=== PATIENT | female | born 1955 | race Caucasian/White ===

== ENCOUNTER 2019-12-15 15:05 | Emergency (ER) | payer OTHER, SELFPAY ==
[2019-12-15 15:10] VITALS: BP 124/86; PULSE 94; RESP 16; TEMP 36.2; O2SAT 97; BMI 31.6
--- NOTE | 2019-12-15 15:16 | DI.RAD.S_ITS ---
PROCEDURE: XR HUMERUS LT 2V INDICATIONS: fall TECHNIQUE: 2 views of the humerus were acquired. COMPARISON: None. FINDINGS: Bones: There is a mildly displaced, mildly impacted comminuted fracture is seen of the left humeral neck. No definite intra-articular involvement is seen. No dislocation seen. The visualized ribs are unremarkable. No suspicious lytic or blastic lesions are seen. Soft tissues: No suspicious soft tissue calcifications. Presumed pacer leads are seen. The visualized lung demonstrates an unremarkable appearance. IMPRESSION: Mildly displaced, impacted fracture of the left humeral neck. Dictated by: Chuck Casey M.D. on 12/15/2019 at 14:35 Approved by: Chuck Casey M.D. on 12/15/2019 at 14:36
--- NOTE | 2019-12-15 15:55 | ED.UPPEXIN ---
HPI - Extremity Injury (Upper) General Chief Complaint: Extremity Injury, Upper Stated Complaint: left shoulder/arm injury, thinks broken Time Seen by Provider: 12/15/19 15:11 History of Present Illness HPI narrative: CC: Left shoulder pain I think broke my arm. HPI: The patient is a 64-year-old female that was walking out start side and tripped and fell against the lower step of the porch landing directly on her left shoulder. She developed immediate pain and discomfort. This occurred at approximately 12:00 p.m.. The patient did not strike her head injure her back or injure her neck. She has had no chest pain and no chest injury. She has had no shortness of breath or difficulty in breathing at this time. She was not incontinent of urine or stool. She had no nausea or vomiting. The pain is 7 to 8/10 in intensity. She has no allergies to medications. She states that she has a pacemaker in place and has a history of a cardiomyopathy with congestive heart failure. She has had a heart attack in the past. She denies any asthma hypertension or diabetes mellitus. She regrets occasionally drinks alcohol does not use any drugs. Related Data Previous Rx's Medication Instructions Recorded ondansetron HCl [Zofran] 4 mg PO Q6H PRN #10 tab 12/15/19 oxycodone-acetaminophen [Percocet] 1 tab PO Q4-6H PRN #12 tab 12/15/19 Allergies Allergy/AdvReac Type Severity Reaction Status Date / Time No Known Drug Allergies Allergy Verified 12/15/19 16:02 Review of Systems Review of Systems Narrative: The patient's review of systems were all negative except for those mentioned in the history of present illness. Exam Narrative Exam Narrative: PHYSICAL EXAM: CONSTITUTIONAL: Awake, Alert, Oriented, Coherent, Cooperative in no acute distress as long as she holds her left shoulder and arm splinted against her chest with her elbow flexed. HEAD: AT/NC EENT: PERRL, FROM of eyes, no discharge, no nystagmus MOUTH: The patient is wearing a COVID-19 mask. NECK: Supple, no obvious JVD, Trachea is midline without stridor, no palpable LN. SPINE: Palpationof the cervical, Thoracic, Lumbar or Sacral spine reveals no gross deformity or tenderness. No CVA tenderness. THORAX: No deformity, retractions, chest wall tenderness. LUNGS: Clear, symmetrical breath sounds without respiratory distress. HEART: Normal heart tones, regular rhythm and rate without murmur. ABDOMEN: Soft, non-tender, normal bowel sounds without guarding, rebound, rigidity or palpable mass. EXTREMITIES: The patient is tender to palpation along the head of the humerus. There was no tenderness to palpation over the clavicle a chromium or scapula. The patient is able to flex and extend her left elbow. The patient is able to flex extend and abduct and adduct her fingers. She has good capillary refill good sensation in her fingers. SKIN: No rash, bruising, or purpura. NEURO: Awake, alert, oriented, conversive, cranial nerves II-XII are symmetrical , moves all 4 extremities and is ambulatory. Initial Vital Signs Initial Vital Signs: Vital Signs Temperature 97.1 F L 12/15/19 15:10 Pulse Rate 94 H 12/15/19 15:10 Respiratory Rate 16 12/15/19 15:10 Blood Pressure 124/86 12/15/19 15:10 Pulse Oximetry 97 12/15/19 15:10 Course Course Course Narrative: 1555: Call was placed to Dr. Grider to refer the fracture to him. The patient has an impacted fracture of he neck of the humerus with minimal mild displacement. The patient has been placed in a shoulder immobilizer in administered morphine IM for the pain and discomfort. She states that her pain is 6 to 7/10 in intensity. Orders Ordered: Discontinued Medications Morphine Sulfate (Morphine) 4 mg IM NOW ONE Stop: 12/15/19 15:52 Last Admin: 12/15/19 16:06 Dose: 4 mg Documented by: TIMMY Ondansetron HCl (Zofran Odt) 4 mg SL NOW ONE Stop: 12/15/19 15:52 Last Admin: 12/15/19 16:06 Dose: 4 mg Documented by: TIMMY Vital Signs Vital signs: Vital Signs - 8 hr 12/15/19 15:10 Temperature 97.1 F L Pulse Rate 94 H Respiratory Rate 16 Blood Pressure 124/86 Pulse Oximetry 97 Discharge Plan Departure Patient Disposition: Home Clinical Impression: Fracture of humerus Qualifiers: Encounter type: initial encounter Humerus Location: surgical neck Fracture type: closed Fracture morphology: 2-part Fracture alignment: displaced Laterality: left Qualified Code(s): S42.222A - 2-part displaced fracture of surgical neck of left humerus, initial encounter for closed fracture Discharge Date/Time: 12/15/19 16:47 Instructions: DI for Fracture, DI for Shoulder Fracture Activity Restrictions/Additional Instructions: 1. Follow up with Dr. Grider call his office for an appointment 2. For the next 48 hours apply ice cold compresses for 20-30 minutes to the area of pain and discomfort every 2 hours as tolerated. 3. Take Percocet5/325 every 4- 6 hours for severe pain and discomfort. Prescriptions: New oxycodone-acetaminophen [Percocet] 5-325 mg tablet 1 tab PO Q4-6H PRN (Reason: pain) Qty: 12 RF: 0 ondansetron HCl [Zofran] 4 mg tablet 4 mg PO Q6H PRN (Reason: nausea and vomiting) Qty: 10 RF: 0 Referrals: Roque Grider MD [Physician] -
[2019-12-15] MEDS: ONDANSETRON 4 MG ODT SL (16:06)
[2019-12-15] MEDS: MORPHINE 4 MG/ML INJ IM (16:06)
[2019-12-15 16:44] VITALS: BP 120/70; PULSE 70; RESP 18; O2SAT 99
== END 2019-12-15 16:47 | disposition home or self-care (01) ==
PROVIDERS: Emergency Provider Emergency Medicine
DX: S42.222A 2-part displaced fracture of surgical neck of left humerus, initial encounter for closed fracture (principal); W19.XXXA Unspecified fall, initial encounter
CPT/HCPCS: 73060; 96372; 99283; 99284; J2270

== ENCOUNTER → 2021-03-05 08:56 | Outpatient (CLI) | payer OTHER, SELFPAY ==
[2021-03-05 10:43] LABS: COVID19 -Nasal RAPID Negative (Negative)
== END ==
PROVIDERS: Visit Provider Surgery
DX: Z20.822 Contact with and (suspected) exposure to COVID-19 (principal)
CPT/HCPCS: 87635; C9803

== ENCOUNTER 2021-03-08 07:56 | Day surgery (SDC) | payer OTHER, SELFPAY ==
[2021-03-08 08:32] VITALS: BP 113/77; PULSE 74; RESP 16; TEMP 36.6; O2SAT 97
[2021-03-08 08:34] VITALS: BMI 30.7
[2021-03-08] MEDS: LACTATED RINGERS 1,000 ML 200 ML IV (08:51)
--- NOTE | 2021-03-08 09:16 | PM.HP.1 ---
History of Present Illness History of Present Illness Date Patient Seen: 03/08/21 Time Patient Seen: 09:16 Chief complaint: SDC Narrative: The patient presents for colorectal sreening. They have never had any previous examination for such. No personal or family history of colon cancer. On further history denies any recent gastrointestinal symptoms. No nausea, vomiting, abdominal pain, loss of appetite, unexplained weight loss, change in bowel habits, diarrhea, constipation, melena, hematochezia, or bright red blood per rectum. Patient History Medical History Elevated cholesterol Fracture of anatomical neck of left humerus History of heart failure Hypertension Myocardial infarct Presence of combination internal cardiac defibrillator (ICD) and pacemaker Family & Social History Social History: household members spouse Tobacco & Substance use: Smoking Status Never smoker alcohol intake current alcohol intake frequency a few times a month Substance Use Type does not use Meds Home Medications and Allergies Home Medications Medication Instructions Recorded Confirmed Type atorvastatin 20 mg tablet 20 mg PO BEDTIME 03/08/21 03/08/21 History carvedilol 25 mg tablet 25 mg PO BID 03/08/21 03/08/21 History lisinopril 10 mg tablet 10 mg PO BEDTIME 03/08/21 03/08/21 History spironolactone 25 mg tablet 12.5 mg PO DAILY 03/08/21 03/08/21 History Allergies Allergy/AdvReac Type Severity Reaction Status Date / Time No Known Drug Allergies Allergy Verified 03/08/21 08:25 Review of Systems Review of Systems ROS: Yes All systems reviewed with the patient and are negative except as otherwise documented Exam Vital Signs (past 8 hours): - 03/08/21 08:32 Temperature 97.8 F Pulse Rate 74 Respiratory Rate 16 Blood Pressure 113/77 Pulse Oximetry 97 Oxygen Delivery Method Room Air Narrative Exam Narrative: GENERAL-well developed adult woman, no acute distress HEENT-no scleral icterus, hearing intact NECK-no JVD, trachea midline CVS- regular rate, no peripheral edema RESP-unlabored respiratory effort, no audible wheezing GI-soft, nontender nondistended MSK-no cyanosis or clubbing, extremities without deformity SKIN-warm, dry NEURO-alert and oriented, no focal deficits PYSCH-Appropriate mood and affect Assessment & Plan Assessment & Plan narrative: The patient requires colorectal screening and colonoscopy is recommended. Technical details were discussed. Risks, benefits, alternatives explained. Risks including but not limited to myocardial infarction, aspiration, bleeding, pain, missed lesion, incomplete examination, need for further radiographic studies, colonic perforation, and need for major abdominal surgery were discussed. All questions were answered to their satisfaction, and they are in agreement with this plan.
[2021-03-08] MEDS: fentaNYL 250 MCG/5 ML INJ IV (09:29)
[2021-03-08] MEDS: MIDAZOLAM 5 MG/5 ML VIAL IV (09:29)
--- NOTE | 2021-03-08 09:44 | PM.OP.ENDO ---
Operative Date/Time/Diagnoses Date of procedure: 03/08/21 Time of procedure: 09:44 Pre-op diagnosis: Screening colonoscopy Post-op diagnosis: same Procedure & Clinicians Study performed: Colonoscopy Same procedure as scheduled: Yes Indications: Screening colonoscopy Surgeon: Artie Garcia Procedure Notes Procedure in detail: Medications: Conscious sedation using 6mg IV midazolam and 150mcg IV of fentanyl The history and physical was performed/updated and the patient is ASA class is 3. The procedure was discussed in detail with the patient. Potential risks complications including infection, bleeding, missed diagnosis, perforation, need for surgery, and were explained. Their questions were answered and informed consent was obtained. Patient was brought to the procedure room and placed standard monitoring equipment. The patient's vital signs were monitored continuously throughout the entire procedure. Prior to starting time-out was performed. The patient was placed in the left lateral recumbent position. Procedural sedation was administered. Examination began with a thorough inspection of the perianal area there was no evidence of fissures, fistulae, external hemorrhoids or cutaneous malignancy. The colonoscopy scope was then placed into the anal canal and was advanced to the cecum, which was identified by the ileocecal valve, the appendiceal orifice and the confluence of the taenia. The scope was then slowly withdrawn examining colon thoroughly in all directions, irrigating it of any residual stool. FINDINGS 1. No masses are palpable 2. Grade 1 internal The patient tolerated the procedure well. They will be discharged once criteria are met. The prep was of good/excellent quality. The withdrawl time was 7 minutes. The sedation time was 21 minutes. Specimen(s): none sent Complications: none Impression: Normal healthy colon Post-procedure Recommendations: Colonscopy in 10 years Disposition: same day surgery
[2021-03-08 09:46] VITALS: BP 104/72; PULSE 74; RESP 13; TEMP 36.2; O2SAT 93
[2021-03-08 09:51] VITALS: BP 101/66; PULSE 69; RESP 22; O2SAT 93
[2021-03-08 10:01] VITALS: BP 102/65; PULSE 58; RESP 11; O2SAT 97
[2021-03-08 10:16] VITALS: BP 115/68; PULSE 71; RESP 12; TEMP 36.4; O2SAT 97
[2021-03-08 10:45] VITALS: BP 101/69; PULSE 60; RESP 16; TEMP 36.2; O2SAT 97
== END 2021-03-08 10:48 | disposition home or self-care (01) ==
PROVIDERS: Referring Provider Surgery; Visit Provider Surgery
PROC: 0DJD8ZZ Inspection of Lower Intestinal Tract, Via Natural or Artificial Opening Endoscopic (ICD-10-PCS; CPT 45378; principal; 2021-03-08 09:15)
DX: Z12.11 Encounter for screening for malignant neoplasm of colon (principal); E78.00 Pure hypercholesterolemia, unspecified; I10 Essential (primary) hypertension; Z95.0 Presence of cardiac pacemaker; I25.2 Old myocardial infarction; K64.0 First degree hemorrhoids
CPT/HCPCS: 45378; 99152; J2250; J3010

== ENCOUNTER 2021-06-13 09:33 | Emergency (ER) | payer OTHER, SELFPAY ==
[2021-06-13] VITALS (20 sets, daily range): BP systolic 101–132; BP diastolic 58–83; PULSE 62–102; RESP 18–26; TEMP 36.9; O2SAT 84–99; BMI 30.3
[2021-06-13 11:00] LABS: Add Manual Diff / Slide Review NO; Basophils Absolute Auto 0 /uL (0-100); Basophils Percent Auto 0.5 % (0-2); Eosinophils Absolute Auto 200 /uL (0-450); Eosinophils Percent Auto 2.2 % (2-4); Hematocrit 46.6 % (36-46); Hemoglobin 15.4 g/dL (12.0-16.0); Lymphocytes Absolute Auto 1500 /uL (1100-4500); Lymphocytes Percent Auto 18.6 % (25-40); Mean Corpuscular HGB Conc 33.1 % (30-36); Mean Corpuscular Hemoglobin 28.3 PG (26-34); Mean Corpuscular Volume 85.4 fL (80-100); Monocytes Absolute Auto 900 /uL (0-900); Monocytes Percent Auto 10.7 % (3-14); Neutrophils Absolute Auto 5400 /uL (1500-7000); Platelet Count 222 X10^3/uL (150-400); Red Blood Cell Count 5.46 X10^6/uL (4.0-5.2)
[2021-06-13 11:11] LABS: Alanine Aminotransferase 26 IU/L (<35); Albumin 4.9 g/dL (3.5-5.0); Albumin Globulin Ratio 1.6 (1.0-2.8); Alkaline Phosphatase 86 U/L (38-126); Aspartate Aminotransferase 32 IU/L (14-36); BUN Creatinine Ratio 17.1 (6-22); Bilirubin Total 0.8 mg/dL (0.2-1.3); Blood Urea Nitrogen 20 mg/dL (7-17); Calcium 9.8 mg/dL (8.4-10.2); Carbon Dioxide 25 mmol/L (22-32); Chloride 104 mmol/L (98-107); Estimated Glomerular Filt Rate 46.6 mL/min (>60); Globulin 3.1 g/dL (1.7-4.1); Glucose 107 mg/dL (80-110); HEMOLYSIS < 15 (0-50); Lipase 37 U/L (23-300); Potassium 3.2 mmol/L (3.4-5.1); Sodium 142 mmol/L (137-145)
--- NOTE | 2021-06-13 11:18 | ED.NAVMDI ---
HPI - Nausea/Vomiting/Diarrhea General Chief complaint: Nausea/Vomiting/Diarrhea Stated complaint: Diarrhea for over a week, dehydrated, weak Time Seen by Provider: 06/13/21 11:05 Source: patient Mode of arrival: Family Vehicle Limitations: no limitations History of Present Illness HPI Narrative: Patient is a 65-year-old female who presents with diarrhea ongoing for about 1 week. She says she has gone multiple times a day it is nonbloody she goes almost every time she goes to the restroom. She has no abdominal pain no vomiting. She does feel little weak and dehydrated. She tried taking Imodium earlier in the week but it upset her stomach. She says she and her ate dinner at a [employer] restaurant and had the same thing she got sick and he did not. Related Data Home Medications Medication Instructions Recorded Confirmed atorvastatin 20 mg tablet 20 mg PO BEDTIME 03/08/21 03/08/21 carvedilol 25 mg tablet 25 mg PO BID 03/08/21 03/08/21 lisinopril 10 mg tablet 10 mg PO BEDTIME 03/08/21 03/08/21 spironolactone 25 mg tablet 12.5 mg PO DAILY 03/08/21 03/08/21 Allergies Allergy/AdvReac Type Severity Reaction Status Date / Time No Known Drug Allergies Allergy Verified 03/08/21 08:25 Review of Systems Review of Systems Narrative: GENERAL: Denies chills, fatigue, malaise, fever, sweats, travel HEENT: Denies sinus pain, ear pain, sore throat, difficulty swallowing, neck pain RESPIRATORY: Denies dyspnea, cough, wheezing, hemoptysis, sputum. CARDIOVASCULAR: Denies chest pain, palpitations, orthopnea, edema GASTROINTESTINAL: see HPI : Denies dysuria, frequency, incontinence, hematuria, urinary retention, flank pain. MUSCULOSKELETAL: Denies weakness, joint pain, or bony pain SKIN: No rash, no erythema, no pruritus NEUROLOGIC: Denies weakness, dizziness, headache, numbness, change in speech, confusion PSYCHIATRIC: No concerning psychosocial issues. 12 point review of systems is negative except for those stated above and HPI Patient History Medical History Elevated cholesterol Fracture of anatomical neck of left humerus History of heart failure Hypertension Myocardial infarct Presence of combination internal cardiac defibrillator (ICD) and pacemaker Social History household members: spouse Smoking Status: Never smoker alcohol intake: current Smoking Status: Never smoker alcohol intake frequency: a few times a month Substance Use Type: does not use Exam Initial Vital Signs Initial Vital Signs: Vital Signs Temperature 98.4 F 06/13/21 10:33 Pulse Rate 86 06/13/21 10:33 Respiratory Rate 18 06/13/21 10:33 Blood Pressure 120/83 06/13/21 10:33 Pulse Oximetry 96 06/13/21 10:33 GENERAL: Alert 65-year-old male and in no acute distress. HEENT: Head atraumatic,EOMI, pupils reactive, face symmetric, moist mucous membranes CARDIOVASCULAR: Regular rate and rhythm without murmurs, rubs or gallops. RESPIRATORY: Breath sounds equal bilaterally, no wheezes rales or rhonchi. ABDOMEN: Soft, nontender. Normoactive bowel sounds all 4 quadrants. No guarding or rebound. EXTREMITIES: Normal range of motion, no clubbing or edema. Neurovascularly intact NEUROLOGICAL: Alert and oriented x4.Normal gait and speech. SKIN: Warm, dry, no laceration, no petechiae, no rashes or lesions. Course Orders Ordered: ED Orders 06/13/21 10:39 EKG-12 Lead Stat 06/13/21 10:49 Complete Blood Count AUTO DIFF Stat Comprehensive Metabolic Panel Stat Lipase Stat 06/13/21 13:04 GI Panel (Film Array) Stat Discontinued Medications Sodium Chloride (Normal Saline 0.9%) 1,000 mls @ 1,000 mls/hr IV BOLUS ONE Stop: 06/13/21 12:27 Last Infusion: 06/13/21 12:48 Dose: 0 mls/hr Documented by: Admin: 06/13/21 11:36 Dose: 1,000 mls/hr Documented by: LAURA Potassium Chloride (Potassium Chloride 20 Meq Tab) 40 meq PO NOW ONE Stop: 06/13/21 11:29 Last Admin: 06/13/21 11:36 Dose: 40 meq Documented by: LAURA Vital Signs Vital signs: Vital Signs - 8 hr 06/13/21 10:53 06/13/21 10:55 06/13/21 11:00 Pulse Rate 79 68 75 Respiratory Rate 22 18 Blood Pressure 106/78 101/72 Pulse Oximetry 84 L 97 97 06/13/21 11:30 06/13/21 11:31 06/13/21 12:00 Pulse Rate 76 80 74 Respiratory Rate 21 21 22 Blood Pressure 118/64 Pulse Oximetry 96 96 98 06/13/21 12:01 06/13/21 12:30 06/13/21 12:31 Pulse Rate 71 72 68 Respiratory Rate 20 24 18 Blood Pressure 116/58 L 126/60 Pulse Oximetry 98 98 99 06/13/21 13:00 06/13/21 13:31 06/13/21 14:00 Pulse Rate 62 102 H 71 Respiratory Rate 19 23 21 Blood Pressure 132/62 Pulse Oximetry 99 89 L 97 06/13/21 14:19 06/13/21 14:20 06/13/21 14:30 Pulse Rate 70 74 69 Respiratory Rate 21 Blood Pressure 111/70 111/70 Pulse Oximetry 98 98 98 06/13/21 14:55 06/13/21 15:00 06/13/21 15:30 Pulse Rate 74 65 69 Respiratory Rate 26 H 20 19 Blood Pressure 104/75 110/67 115/70 Pulse Oximetry 97 97 97 06/13/21 16:00 Pulse Rate 71 Respiratory Rate 21 Blood Pressure 116/77 Pulse Oximetry 98 MDM - Nausea/Vomiting/Diarrhea Lab Data Result diagrams: 06/13/21 10:49 06/13/21 10:49 Labs: Lab Results 06/13/21 06/13/21 06/13/21 Range/Units 10:49 10:49 13:04 WBC 8.0 (4.5-11.0) X10^3/uL RBC 5.46 H (4.0-5.2) X10^6/uL Hgb 15.4 (12.0-16.0) g/dL Hct 46.6 H (36-46) % MCV 85.4 (80-100) fL MCH 28.3 (26-34) PG MCHC 33.1 (30-36) % RDW 14.0 (11.6-14.8) % Plt Count 222 (150-400) X10^3/uL Neut % (Auto) 68.0 (50-75) % Lymph % (Auto) 18.6 L (25-40) % Jerome % (Auto) 10.7 (3-14) % Eos % (Auto) 2.2 (2-4) % Baso % (Auto) 0.5 (0-2) % Neut # (Auto) 5400 (9305-0259) /uL Lymph # (Auto) 1500 (4961-5664) /uL Jerome # (Auto) 900 (0-900) /uL Eos # (Auto) 200 (0-450) /uL Baso # (Auto) 0 (0-100) /uL Sodium 142 (137-145) mmol/L Potassium 3.2 L (3.4-5.1) mmol/L Chloride 104 (98-107) mmol/L Carbon Dioxide 25 (22-32) mmol/L BUN 20 H (7-17) mg/dL Creatinine 1.17 H (0.52-1.04) mg/dL Estimated GFR 46.6 L (>60) mL/min BUN/Creatinine Ratio 17.1 (6-22) Glucose 107 (80-110) mg/dL Calcium 9.8 (8.4-10.2) mg/dL Total Bilirubin 0.8 (0.2-1.3) mg/dL AST 32 (14-36) IU/L ALT 26 (<35) IU/L Alkaline Phosphatase 86 (38-126) U/L Total Protein 8.0 (6.3-8.2) g/dL Albumin 4.9 (3.5-5.0) g/dL Globulin 3.1 (1.7-4.1) g/dL Albumin/Globulin Ratio 1.6 (1.0-2.8) Lipase 37 (23-300) U/L Stl C. cayetanensis PCR Not detected (Not Detect) Stool Rotavirus (PCR) Not detected (Not Detect) Stool Adenovirus (PCR) Not detected (Not Detect) Stool Astrovirus (PCR) Not detected (Not Detect) Stool Cryptosporidium PCR Not detected (Not Detect) Stl E.coli Shiga Tox PCR Not detected (Not Detect) St Sh/Enteroin Ecoli PCR Not detected (Not Detect) Stool E coli O157 PCR Not detected (Not Detect) Stl Enterotoxigenic E PCR Not detected (Not Detect) Stool EPEC (PCR) Not detected (Not Detect) Stl E. histolytica PCR Not detected (Not Detect) Stool Giardia Lamblia PCR Not detected (Not Detect) Stool Sapovirus (PCR) Not detected (Not Detect) Stl P. shigelloides PCR Not detected (Not Detect) St Y.enterocolitica PCR Not detected (Not Detect) Stool Vibrio (PCR) Not detected (Not Detect) Stl Vibrio cholerae PCR Not detected (Not Detect) Stl Enteroaggr Ecoli PCR Not detected (Not Detect) Stl Norovirus GI/GII PCR Not detected (Not Detect) Campylobacter (PCR) Not detected (Not Detect) C. difficile Tox (PCR) Not detected (Not Detect) Salmonella (PCR) Not detected (Not Detect) MDM Narrative Medical decision making narrative: Now in the emergency department patient is having difficulty providing stool sample however she was finally able to provide 1. It is negative for everything. At this time recommend conservative treatment with hydration and Imodium. She is found to be slightly hypokalemic with potassium of 3.2 which is replaced in the emergency department. Discussed oral rehydration techniques. Discharge Plan Departure Patient Disposition: Home Clinical Impression: Gastroenteritis Instructions: DI for Viral Gastroenteritis -- Adult Activity Restrictions/Additional Instructions: 1) You have been diagnosed with gastroenteritis 2) What to do: Drink frequent but small amounts of fluids. Blood work and stool sample were negative. He did show some signs of dehydration electrolyte abnormality potassium slightly low. I recommend Gatorade or a Gatorade-like product, as it has small amounts of sugar and salts that improve fluid retention. 3) Take medications as directed 4) Follow up with your primary care provider in 2-3 days 5) Return to ER if you should have any new or worsening symptoms such as, unable to hold down fluids despite use of anti-nausea medications and the small volume oral rehydration strategy. Prescriptions: No Action carvedilol 25 mg tablet 25 mg PO BID RF: 0 atorvastatin 20 mg tablet 20 mg PO BEDTIME RF: 0 spironolactone 25 mg tablet 12.5 mg PO DAILY RF: 0 lisinopril 10 mg tablet 10 mg PO BEDTIME RF: 0 Referrals: Peng Malone MD [Physician] -
[2021-06-13] MEDS: POTASSIUM CHLORIDE 20 MEQ TAB 40 MEQ PO (11:36)
[2021-06-13] MEDS: SODIUM CHLORIDE 0.9% 1,000 ML 1000 ML IV (11:36)
[2021-06-13 15:59] LABS: Adenovirus F 40/41 Not Detected (Not Detect); Astrovirus Not Detected (Not Detect); Campylobacter Not Detected (Not Detect); Clostridium difficile toxin AB Not Detected (Not Detect); Cryptosporidium Not Detected (Not Detect); Cyclospora cayetanensis Not Detected (Not Detect); Entamoeba histolytica Not Detected (Not Detect); Enteroaggregative E.coli Not Detected (Not Detect); Enteropathogenic E.coli Not Detected (Not Detect); Enterotoxigenic E.coli It/st Not Detected (Not Detect); Giardia lamblia Not Detected (Not Detect); Norovirus GI/GII Not Detected (Not Detect); Plesiomonsa shigelloides Not Detected (Not Detect); Rotavirus A Not Detected (Not Detect); Salmonella Not Detected (Not Detect); Sapovirus Not Detected (Not Detect); Shiga-like toxin-prod E.coli Not Detected (Not Detect); Shigella/Enteroinvasive E.coli Not Detected (Not Detect); Vibrio Not Detected (Not Detect); Vibrio cholerae Not Detected (Not Detect); Yersinia enterocolitica Not Detected (Not Detect)
== END 2021-06-13 16:50 | disposition home or self-care (01) ==
PROVIDERS: Emergency Provider Emergency Medicine
DX: K52.9 Noninfective gastroenteritis and colitis, unspecified (principal); R10.9 Unspecified abdominal pain
CPT/HCPCS: 36415; 80053; 83690; 85025; 87507; 93005; 93010; 96360; 99284